=== PATIENT | male | born 1995 | race Caucasian/White ===

== ENCOUNTER 2020-01-10 13:49 | Emergency (ER) | payer MEDICAID ==
[~2020-01-10] VITALS: Ht 185.4 cm; Wt 104.8 kg
[2020-01-10 13:56] VITALS: BP 118/79
[2020-01-10] MEDS ORDERED: PRED20TA PO (14:07)
== END 2020-01-10 14:28 | disposition home or self-care (01) ==
LOC: ER 13:50
DX: L23.9 Allergic contact dermatitis, unspecified cause (principal)
CPT/HCPCS: 99283